=== PATIENT | female | born 1960 | race Caucasian/White ===

== ENCOUNTER 2016-08-12 10:33 | Emergency (ER) | payer OTHER | END 2016-08-12 15:36 | disposition home or self-care (01) | LOC: ER 10:33 | DX: R07.2 Precordial pain (principal); R07.89 Other chest pain; R09.1 Pleurisy; Z79.899 Other long term (current) drug therapy | CPT/HCPCS: 36415; 80053; 82553; 84484; 85025; 85379; 93005 ==